=== PATIENT | male | born 1945 | race Two or more races ===

== ENCOUNTER 2017-05-22 08:06 | Day surgery (SDC) | payer BC ==
[2017-05-20 17:56] VITALS: BMI 21.7
[2017-05-22 08:22] VITALS: TEMP 97.8
[2017-05-22] MEDS ORDERED: LIDOCAINE HCL/PF 2% SDV 5ML VIAL ONE (09:05)
[2017-05-22] MEDS ORDERED: PROPOFOL 20 ML ONE ×2 (09:05)
[2017-05-22 10:32] VITALS: BP 133/69; PULSE 69
== END 2017-05-22 10:20 | disposition home or self-care (01) ==
LOC: FASU-ENDO 08:06
PROVIDERS: ATTEND Internal Medicine Gastroenterology
PROC: 0DJD8ZZ Inspection of Lower Intestinal Tract, Via Natural or Artificial Opening Endoscopic (ICD-10-PCS; principal; 2017-05-22 09:33)
DX: Z12.11 Encounter for screening for malignant neoplasm of colon (principal)